=== PATIENT | female | born 1965 | race African-American/Black ===

== ENCOUNTER 2017-08-08 12:35 | Emergency (ER) | payer BC, OTHER ==
[~2017-08-08] VITALS: Ht 157.5 cm; Wt 115.7 kg
--- NOTE | 2017-08-08 13:34 | RAD ---
Chest, 2 views, 08/08/2017: HISTORY: Cough, shortness of breath The heart size is normal. There is mild linear atelectasis or scarring in the lingula. The right lung is clear. There is no evidence of pleural fluid. Moderate spurring is present in the spine. IMPRESSION: Mild linear atelectasis or scarring in the lingula. Electronically signed by: Luis Alberto Ferreira MD (08/08/2017 1:30 PM) [facility]
[2017-08-08 14:02] LABS: BASO % 1 % (0-3); EOS # 0.2 x10^3/uL (0.0-0.7); EOS % 4 % (0-3); HEMOGLOBIN 14.3 g/dL (12.0-15.5); LYMPH # 1.7 x10^3/uL (1.0-4.8); LYMPH % 30 % (24-48); MEAN CORPUSCULAR HEMOGLOBIN 27 pg (25-35); MEAN CORPUSCULAR HGB CONC 33 g/dL (31-37); MEAN CORPUSCULAR VOLUME 82 fL (79-100); MONO # 0.4 x10^3/uL (0.0-1.1); MONO % 8 % (0-9); NEUT # 3.3 x10^3uL (1.8-7.7); NEUT % 58 % (31-73); PLATELET COUNT 223 x10^3/uL (140-400); RED BLOOD COUNT 5.21 x10^6/uL (3.50-5.40); RED CELL DISTRIBUTION WIDTH 14.6 % (11.5-14.5); WHITE BLOOD COUNT 5.6 x10^3/uL (4.0-11.0)
[2017-08-08 14:19] LABS: ALBUMIN 3.5 g/dL (3.4-5.0); ALBUMIN/GLOBULIN RATIO 0.8 (1.0-1.7); CALCIUM 8.8 mg/dL (8.5-10.1); CREATININE 0.9 mg/dL (0.6-1.0); GFR 79.6; POTASSIUM 4.5 mmol/L (3.5-5.1); TOTAL BILIRUBIN 0.2 mg/dL (0.2-1.0); TOTAL PROTEIN 7.9 g/dL (6.4-8.2)
--- NOTE | 2017-08-08 14:21 | PHYS DOC ---
Adult General Chief Complaint Chief Complaint: NAUSEA/VOMITING/DIARRHEA HPI HPI Patient is a 52-year-old female who has a history of hypertension and is not currently being treated who is presenting with 3-4 days of multiple symptoms to include sore throat and runny nose dry cough occasional yellow sputum she feels some shortness of breath from coughing. She has subjective fever she felt both warm and cold. She says she has had some body aches she has a mild headache. She 's had these symptoms for 4 days and there slowly getting worse she did have 2 episodes of diarrhea without first started she does have some nausea now. No chest pain really. Her sister has checked into the emergency room at the exact same time with very similar symptoms. Review of Systems Review of Systems Constitutional: Subjective fever Eyes: Denies change in visual acuity, redness, or eye pain [] HENT: History of present illness] : Denies dysuria or hematuria [] Musculoskeletal: Joint pain Integument: Denies rash or skin lesions [] Neurologic: Denies , focal weakness or sensory changes [] Endocrine: Denies polyuria or polydipsia [] All other systems were reviewed and found to be within normal limits, except as documented in this note. Physical Exam Physical Exam Constitutional: Well developed, well nourished, no acute distress, non-toxic appearance. [] HENT: Normocephalic, atraumatic, bilateral external ears normal, oropharynx moist, no oral exudates, nose normal. [] Eyes: PERRLA, EOMI, conjunctiva normal, no discharge. [] Neck: Normal range of motion, no tenderness, supple, no stridor. [] Cardiovascular:Heart rate regular rhythm, no murmur [] Lungs & Thorax: Bilateral breath sounds clear to auscultation []patient is a reactive cough. Abdomen: Bowel sounds normal, soft, no tenderness, no masses, no pulsatile masses. [] Skin: Warm, dry, no erythema, no rash. [] Back: No tenderness, no CVA tenderness. [] Extremities: No tenderness, no cyanosis, no clubbing, ROM intact, no edema. [] Neurologic: Alert and oriented X 3, normal motor function, normal sensory function, no focal deficits noted. [] Psychologic: Affect normal, judgement normal, mood normal. [] Current Patient Data Lab Results Laboratory Tests Test 08/08/17 13:30 White Blood Count 5.6 x10^3/uL (4.0-11.0) Red Blood Count 5.21 x10^6/uL (3.50-5.40) Hemoglobin 14.3 g/dL (12.0-15.5) Hematocrit 43.0 % (36.0-47.0) Mean Corpuscular Volume 82 fL (79-100) Mean Corpuscular Hemoglobin 27 pg (25-35) Mean Corpuscular Hemoglobin Concent 33 g/dL (31-37) Red Cell Distribution Width 14.6 % (11.5-14.5) H Platelet Count 223 x10^3/uL (140-400) Neutrophils (%) (Auto) 58 % (31-73) Lymphocytes (%) (Auto) 30 % (24-48) Monocytes (%) (Auto) 8 % (0-9) Eosinophils (%) (Auto) 4 % (0-3) H Basophils (%) (Auto) 1 % (0-3) Neutrophils # (Auto) 3.3 x10^3uL (1.8-7.7) Lymphocytes # (Auto) 1.7 x10^3/uL (1.0-4.8) Monocytes # (Auto) 0.4 x10^3/uL (0.0-1.1) Eosinophils # (Auto) 0.2 x10^3/uL (0.0-0.7) Basophils # (Auto) 0.0 x10^3/uL (0.0-0.2) EKG EKG [] Radiology/Procedures Radiology/Procedures [] Impressions: ISTORY: Cough, shortness of breath The heart size is normal. There is mild linear atelectasis or scarring in the lingula. The right lung is clear. There is no evidence of pleural fluid. Moderate spurring is present in the spine. IMPRESSION: Mild linear atelectasis or scarring in the lingula. Electronically signed by: Luis Alberto Ferreira MD (08/08/2017 1:30 PM) [facility] Course & Med Decision Making Course & Med Decision Making Pertinent Labs and Imaging studies reviewed. (See chart for details) []This is a 52-year-old female with a history of borderline hypertension who is presenting with URI symptoms started with some diarrhea now with body aches dry cough subjective fever. Chest x-ray was negative for pneumonia we did some basic lab work patient is overall well-appearing with reassuring vitals. Blood pressure was a little high. suspect viral etiology. pt was advised on rest otc agents gradual return to activity return precautions discussed. Dragon Disclaimer Dragon Disclaimer This electronic medical record was generated, in whole or in part, using a voice recognition dictation system. Departure Departure: Impression: Primary Impression: Viral syndrome Referrals: NON,STAFF (PCP) YENNY SCHNEIDER MD Aug 08, 2017 14:21
[2017-08-08 15:05] VITALS: BP 129/76
== END 2017-08-08 15:08 | disposition home or self-care (01) ==
LOC: ER 12:35
DX: B34.9 Viral infection, unspecified (principal)
CPT/HCPCS: 36415; 71046; 80053; 85025; 99285-25